=== PATIENT | female | born 1990 | race Two or more races ===

== ENCOUNTER 2018-07-14 11:19 | Emergency (ER) | payer OTHER ==
[~2018-07-14] VITALS: Ht 165.1 cm; Wt 98.9 kg
[2018-07-14 11:41] LABS: BILIRUBIN,URINE NEGATIVE (NEG); CLARITY,URINE CLEAR; COLOR,URINE YELLOW; NITRITE,URINE NEGATIVE (NEG); PH,URINE 5.5; PROTEIN,URINE NEGATIVE (NEG-TRACE); UROBILINOGEN,URINE 0.2 mg/dL (0.2 mg/dL)
--- NOTE | 2018-07-14 11:45 | PHYS DOC ---
Adult General Chief Complaint Chief Complaint: VAGINAL BLEEDING HPI HPI Patient is a 28 year old female with no significant medical history Tajik- speaking who presents to the ED today complaining of vaginal bleeding and mild cramping, symptoms began 2 weeks ago. Patient denies soaking more than 1 feminine pad an hour. She states she does not know she is or not. Interpretation was provided by patient's [id number] (JOHN PAUL BENAVIDES APRN) Review of Systems Review of Systems Constitutional: Denies fever or chills [] Eyes: Denies change in visual acuity, redness, or eye pain [] HENT: Denies nasal congestion or sore throat [] Respiratory: Denies cough or shortness of breath [] Cardiovascular: No additional information not addressed in HPI [] GI: Reports vaginal bleeding and pelvic pain. Denies Nausea, vomiting, bloody stools or diarrhea [] : Denies dysuria or hematuria [] Musculoskeletal: Denies back pain or joint pain [] Integument: Denies rash or skin lesions [] Neurologic: Denies headache, focal weakness or sensory changes [] Endocrine: Denies polyuria or polydipsia [] All other systems were reviewed and found to be within normal limits, except as documented in this note. (JOHN PAUL BENAVIDES APRN) Allergies Allergies Allergies Coded Allergies Type Severity Reaction Last Updated Verified No Known Drug Allergies 07/14/18 No (MAGGY RUEDA MD) Physical Exam Physical Exam Constitutional: Well developed, well nourished, no acute distress, non-toxic appearance. [] HENT: Normocephalic, atraumatic, bilateral external ears normal, oropharynx moist, no oral exudates, nose normal. [] Eyes: PERRLA, EOMI, conjunctiva normal, no discharge. [] Neck: Normal range of motion, no tenderness, supple, no stridor. [] Cardiovascular:Heart rate regular rhythm, no murmur [] Lungs & Thorax: Bilateral breath sounds clear to auscultation [] Abdomen: Bowel sounds normal, soft, no tenderness, no masses, no pulsatile masses. [] Pelvic exam external pelvic appears normal, cervix is visualized, closed, no CMT, no adnexal tenderness. Trace amount of bright red blood noted in the vaginal vault. Skin: Warm, dry, no erythema, no rash. [] Back: No tenderness, no CVA tenderness. [] Extremities: No tenderness, no cyanosis, no clubbing, ROM intact, no edema. [] Neurologic: Alert and oriented X 3, normal motor function, normal sensory function, no focal deficits noted. [] Psychologic: Affect normal, judgement normal, mood normal. [] (JOHN PAUL BENAVIDES APRN) Current Patient Data Vital Signs Vital Signs Date Time Temp Pulse Resp B/P (MAP) Pulse Ox O2 Delivery O2 Flow Rate FiO2 07/14/18 14:30 71 16 121/78 (92) 100 Room Air 07/14/18 11:27 98.5 98.5 (MAGGY RUEDA MD) Lab Values Laboratory Tests Test 07/14/18 11:28 07/14/18 11:34 07/14/18 13:25 Urine Collection Type Unknown Urine Color Yellow Urine Clarity Clear Urine pH 5.5 Urine Specific Burna 1.015 Urine Protein Negative mg/dL (NEG-TRACE) Urine Glucose (UA) Negative mg/dL (NEG) Urine Ketones (Stick) Negative mg/dL (NEG) Urine Blood Large (NEG) Urine Nitrite Negative (NEG) Urine Bilirubin Negative (NEG) Urine Urobilinogen Dipstick 0.2 mg/dL (0.2 mg/dL) Urine Leukocyte Esterase Negative (NEG) Urine RBC 11-20 /HPF (0-2) Urine WBC Occ /HPF (0-4) Urine Squamous Epithelial Cells Few /LPF Urine Bacteria Few /HPF (0-FEW) Urine Mucus Slight /LPF POC Urine HCG, Qualitative Hcg negative (Negative) White Blood Count 9.7 x10^3/uL (4.0-11.0) Red Blood Count 4.83 x10^6/uL (3.50-5.40) Hemoglobin 13.7 g/dL (12.0-15.5) Hematocrit 41.6 % (36.0-47.0) Mean Corpuscular Volume 86 fL (79-100) Mean Corpuscular Hemoglobin 28 pg (25-35) Mean Corpuscular Hemoglobin Concent 33 g/dL (31-37) Red Cell Distribution Width 14.2 % (11.5-14.5) Platelet Count 281 x10^3/uL (140-400) Neutrophils (%) (Auto) 70 % (31-73) Lymphocytes (%) (Auto) 22 % (24-48) L Monocytes (%) (Auto) 7 % (0-9) Eosinophils (%) (Auto) 1 % (0-3) Basophils (%) (Auto) 1 % (0-3) Neutrophils # (Auto) 6.8 x10^3uL (1.8-7.7) Lymphocytes # (Auto) 2.1 x10^3/uL (1.0-4.8) Monocytes # (Auto) 0.6 x10^3/uL (0.0-1.1) Eosinophils # (Auto) 0.0 x10^3/uL (0.0-0.7) Basophils # (Auto) 0.1 x10^3/uL (0.0-0.2) Sodium Level 139 mmol/L (136-145) Potassium Level 3.9 mmol/L (3.5-5.1) Chloride Level 102 mmol/L (98-107) Carbon Dioxide Level 28 mmol/L (21-32) Anion Gap 9 (6-14) Blood Urea Nitrogen 11 mg/dL (7-20) Creatinine 0.7 mg/dL (0.6-1.0) Estimated GFR (Cockcroft-Gault) 101.1 Glucose Level 87 mg/dL (70-99) Calcium Level 9.5 mg/dL (8.5-10.1) Laboratory Tests 07/14/18 13:25 Laboratory Tests 07/14/18 13:25 Microbiology 07/14/18 Wet Prep - Final, Complete (MAGGY RUEDA MD) EKG EKG [] (JOHN PAUL BENAVIDES APRN) Radiology/Procedures Radiology/Procedures []PROCEDURE: PELVIS W/TV Pelvic and transvaginal ultrasound History: Vaginal bleeding for 2 weeks Comparison: None. Findings: Multiple transabdominal sonographic images of the pelvis are submitted. Left ovary measured 4 x 2.4 x 2.9 cm, normal low resistance vascularity. Right ovary and uterus are poorly visualized. Transvaginal ultrasound: Multiple transvaginal sonographic images of the pelvis are submitted. There are some nabothian cysts with largest up to 0.9 cm. Endometrium is thickened about 1.2 cm. Uterus measured about 4.7 x 3.7 x 8.3 cm. Right ovary measured 4.8 x 2.1 x 4.2 cm, normal low resistance vascularity and color flow. Left ovary measured 3.7 x 2.4 x 4.4 cm with normal low resistance vascularity color flow. No free fluid is demonstrated. Impression: 1. Endometrial is somewhat thickened about 1.2 cm, could be due to hyperplasia, neoplasm considered less likely. 2. No abnormality is demonstrated of either ovary. 3. There are some nabothian cysts. Electronically signed by: Ignacio Navas MD (07/14/2018 1:04 PM) [id number] DICTATED and SIGNED BY: IGNACIO NAVAS MD DATE: 07/14/18 9100 (JOHN PAUL BENAVIDES APRN) Course & Med Decision Making Course & Med Decision Making Pertinent Labs and Imaging studies reviewed. (See chart for details) This is a 28-year-old female patient presenting to the ED today with vaginal bleeding for 2 weeks. Trace amount of blood noted in the vaginal vault, negative urine hcg, UA negative for infection. CBC, BMP with no acute findings. Wet prep noted for altered adrian with no clue cells treatments not required. Pelvic ultrasound-Endometrial is somewhat thickened about 1.2 cm, could be due to hyperplasia, neoplasm considered less likely. No abnormality is demonstrated of either ovary.There are some nabothian cysts. D/C to home. F/u with OB. (JOHN PAUL BENAVIDES APRN) Course & Med Decision Making This patient was seen by an SHERLEY. I did not evaluate the patient unless otherwise specified. (MAGGY RUEDA MD) Dragon Disclaimer Dragon Disclaimer This electronic medical record was generated, in whole or in part, using a voice recognition dictation system. (JOHN PAUL BENAVIDES APRN) Departure Departure Impression: Primary Impression: Dysfunctional uterine bleeding Disposition: HOME, SELF-CARE Condition: STABLE Referrals: NO PCP (PCP) ALVA CRAIG MD follow up in 1 week Patient Instructions: Uterine Bleeding, Dysfunctional, [id number] Additional Instructions: You were evaluated in the emergency room for pelvic pain with vaginal bleeding. We provided you an [employer], follow up because your ultrasound shows your uterus thick and we do not know why it is thick, an OBGYN can follow up to see it it return to normal size. JOHN PAUL BENAVIDES APRN July 14, 2018 11:45 MAGGY RUEDA MD July 14, 2018 18:21
[2018-07-14 11:50] LABS: BACTERIA,URINE FEW /HPF (0-FEW); SQUAMOUS EPITHELIAL CELL,UR FEW /LPF; WBC,URINE OCC /HPF (0-4)
--- NOTE | 2018-07-14 13:07 | RAD ---
Pelvic and transvaginal ultrasound History: Vaginal bleeding for 2 weeks Comparison: None. Findings: Multiple transabdominal sonographic images of the pelvis are submitted. Left ovary measured 4 x 2.4 x 2.9 cm, normal low resistance vascularity. Right ovary and uterus are poorly visualized. Transvaginal ultrasound: Multiple transvaginal sonographic images of the pelvis are submitted. There are some nabothian cysts with largest up to 0.9 cm. Endometrium is thickened about 1.2 cm. Uterus measured about 4.7 x 3.7 x 8.3 cm. Right ovary measured 4.8 x 2.1 x 4.2 cm, normal low resistance vascularity and color flow. Left ovary measured 3.7 x 2.4 x 4.4 cm with normal low resistance vascularity color flow. No free fluid is demonstrated. Impression: 1. Endometrial is somewhat thickened about 1.2 cm, could be due to hyperplasia, neoplasm considered less likely. 2. No abnormality is demonstrated of either ovary. 3. There are some nabothian cysts. Electronically signed by: Vance Maynard MD (07/14/2018 1:04 PM) [id number]
[2018-07-14 13:31] LABS: BASO # 0.1 x10^3/uL (0.0-0.2); BASO % 1 % (0-3); EOS % 1 % (0-3); HEMATOCRIT 41.6 % (36.0-47.0); HEMOGLOBIN 13.7 g/dL (12.0-15.5); LYMPH # 2.1 x10^3/uL (1.0-4.8); LYMPH % 22 % (24-48); MEAN CORPUSCULAR HEMOGLOBIN 28 pg (25-35); MEAN CORPUSCULAR HGB CONC 33 g/dL (31-37); MEAN CORPUSCULAR VOLUME 86 fL (79-100); MONO # 0.6 x10^3/uL (0.0-1.1); MONO % 7 % (0-9); NEUT # 6.8 x10^3uL (1.8-7.7); NEUT % 70 % (31-73); PLATELET COUNT 281 x10^3/uL (140-400); RED BLOOD COUNT 4.83 x10^6/uL (3.50-5.40); RED CELL DISTRIBUTION WIDTH 14.2 % (11.5-14.5); WHITE BLOOD COUNT 9.7 x10^3/uL (4.0-11.0)
[2018-07-14 14:02] LABS: CALCIUM 9.5 mg/dL (8.5-10.1); CREATININE 0.7 mg/dL (0.6-1.0); GFR 101.1; POTASSIUM 3.9 mmol/L (3.5-5.1)
[2018-07-14 14:30] VITALS: BP 121/78
[2018-07-15 21:08] LABS: GC PROBE Negative (Negative)
== END 2018-07-14 15:13 | disposition home or self-care (01) ==
LOC: ER 11:19
DX: N93.8 Other specified abnormal uterine and vaginal bleeding (principal); R10.2 Pelvic and perineal pain; N88.8 Other specified noninflammatory disorders of cervix uteri
CPT/HCPCS: 36415; 76830; 76856; 80048; 81001; 81025; 85025; 87491; 87591; 99285; Q0111